=== PATIENT | male | born 1990 | race Caucasian/White ===

== ENCOUNTER 2018-03-30 21:31 | Emergency (ER) | payer SELFPAY ==
[2018-03-30 21:31] VITALS: BMI 26.6
[2018-03-30 22:00] VITALS: BP 130/96; PULSE 82; RESP 20; TEMP 97.6; O2SAT 96
--- NOTE | 2018-03-30 23:01 | C.PDOC ---
History Of Present Illness 27 year old male presents to the emergency department for evaluation of a headache which has been on and off for the past few months. Patient reports that his headache is frontal, and is associated with nausea, light sensitivity, and intermittent episodes of vomiting. At the present time, patient reports that his headache is minimal, and he states " I just want to check my head". Pt denies fever, chills, worse headache of life, visual changes, focal deficits , sore throat, neck pain, chest pain, shortness of breath, dypsnea, palpitation , diaphoresis, abd. pain, vomiting, diarrhea, back pain, UTI sx. Ambulate to ED for evaluation, not in any apparent distress. Time Seen by Provider: 03/30/18 22:02 Chief Complaint (Nursing): Headache History Per: Patient History/Exam Limitations: no limitations Onset/Duration Of Symptoms: Other (1 year) Current Symptoms Are (Timing): Still Present Quality: Aching Associated Symptoms: Photophobia, Nausea, Vomiting. denies: Blurred Vision Past Medical History Reviewed: Historical Data, Nursing Documentation, Vital Signs Vital Signs: Last Vital Signs Temp 97.6 F 03/30/18 21:54 Pulse 82 03/30/18 21:54 Resp 20 03/30/18 21:54 BP 130/96 H 03/30/18 21:54 Pulse Ox 96 03/30/18 23:23 - Medical History PMH: No Chronic Diseases Surgical History: No Surg Hx Family History: States: No Known Family Hx - Social History Hx Alcohol Use: Yes Hx Substance Use: No - Immunization History Hx Tetanus Toxoid Vaccination: No Hx Influenza Vaccination: No Hx Pneumococcal Vaccination: No Review Of Systems Except As Marked, All Systems Reviewed And Found Negative. Constitutional: Negative for: Fever Eyes: Positive for: Other (photophobia) Cardiovascular: Positive for: Chest Pain Respiratory: Negative for: Shortness of Breath Gastrointestinal: Positive for: Nausea, Vomiting Musculoskeletal: Negative for: Neck Pain Neurological: Positive for: Headache Physical Exam - Physical Exam Appears: Well, Non-toxic, No Acute Distress Skin: Warm, Dry, No Rash, No Ecchymosis Head: Atraumatic, Normacephalic Eye(s): bilateral: PERRL, EOMI Ear(s): Bilateral: Normal Nose: No Flaring, No Discharge Oral Mucosa: Moist Throat: No Erythema, No Drooling Neck: Trachea Midline, No Midline Cervical Tenderness, No Paracervical Tenderness, No Step Off Deformity, Supple Chest: Symmetrical, No Tenderness Cardiovascular: Rhythm Regular, No Murmur, No JVD, Other ((-) carotid bruits B/L ) Respiratory: No Decreased Breath Sounds, No Accessory Muscle Use, No Rales, No Rhonchi, No Stridor, No Wheezing Gastrointestinal/Abdominal: Soft, No Tenderness, No Distention, No Guarding Extremity: Normal ROM (all extremities), No Tenderness, No Pedal Edema, No Deformity Neurological/Psych: Oriented x3, Normal Speech, Normal Cognition, Normal Motor, Normal Sensation, Normal Reflexes ED Course And Treatment O2 Sat by Pulse Oximetry: 96 (RA) Pulse Ox Interpretation: Normal - CT Scan/US CT head w/o contrast Other Rad Studies (CT/US): Radiology Report Reviewed CT/US Interpretation: IMPRESSION: 1. No definite acute intracranial abnormality. 2. Sinus disease. 3. Incidental/non-acute findings are described above. Thank you for allowing us to participate in the care of your patient. Dictated and Authenticated by: Wilfrido Willson MD. 03/31/2018 12:06 AM Eastern Time ([place] & [place]) Progress Note: On re-evaluation, pot is afebrile, hemodynamicaly stable. NOn- toxic. Ambulatory in ED with stable gait. PulsEOx 96% RA. ENT: no acute findings. Neck: Supple, (-) meningeal sign. Lungs: CTA B/L, BS equal B/L. CVS : (+)S1S2, reg. Abd: benign, (-) guarding, (-) rebound, (-) localized tenderness. back: (-) CVA tenderness. Neuorlogicaly intact. Head CT results review and c/w sinusitis ethmoidal. Pt advised and ref. to f/u with PMD, neuorlogist in 2-3 days for re-evaluation. return to ED if anyw orsening or new changes. Disposition Counseled Patient/Family Regarding: Studies Performed, Diagnosis, Need For Followup, Rx Given - Disposition Referrals: [facility] [Outside] Augustus Gregory MD [Staff Provider] - Disposition: HOME/ ROUTINE Disposition Time: 00:21 Condition: STABLE Additional Instructions: Take medication as prescribed Avoid cold air Follow up with PMD, Neurologist in 2-3 days for re-evaluation. return if any worsening or new changes. Prescriptions: Amoxicillin/Clavulanate [Augmentin 875 MG-125 MG] 1 tab PO BID #14 tab Prednisone [Deltasone] 40 mg PO DAILY #6 tablet Instructions: Sinus Headache (DC) Forms: [email or web address] (Samoan) - Clinical Impression Clinical Impression: Sinusitis, Headache - PA / EXECUTIVE VICE PRESIDENT / Resident Statement MD/DO has reviewed & agrees with the documentation as recorded. - Scribe Statement The provider has reviewed the documentation as recorded by the Scribe (Floyd Hoffmann) All medical record entries made by the Scribe were at my direction and personally dictated by me. I have reviewed the chart and agree that the record accurately reflects my personal performance of the history, physical exam, medical decision making, and the department course for this patient. I have also personally directed, reviewed, and agree with the discharge instructions and disposition.
[2018-03-31] MEDS ORDERED: Amoxicillin-Clav 875-125 mg Tab PO STA (00:21)
[2018-03-31] MEDS ORDERED: Amoxicillin-Clav 875-125 mg Tab PO ONE (00:29)
--- NOTE | 2018-03-31 14:40 | CT ---
Date of service: 03/30/2018 PROCEDURE: CT HEAD WITHOUT CONTRAST. HISTORY: headache COMPARISON: None available. TECHNIQUE: Axial computed tomography images were obtained through the head/brain without intravenous contrast. Radiation dose: Total exam DLP = 1218.56 mGy-cm. This CT exam was performed using one or more of the following dose reduction techniques: Automated exposure control, adjustment of the mA and/or kV according to patient size, and/or use of iterative reconstruction technique. FINDINGS: HEMORRHAGE: No intracranial hemorrhage. BRAIN: No mass effect or edema. No atrophy or chronic microvascular ischemic changes. VENTRICLES: Unremarkable. No hydrocephalus. CALVARIUM: Unremarkable. PARANASAL SINUSES: Mucosal thickening noted in the ethmoid sinuses. Mucosal retention cyst at the right sphenoid sinus measures 1.4 centimeter. MASTOID AIR CELLS: Unremarkable as visualized. No inflammatory changes. OTHER FINDINGS: None. IMPRESSION: No evidence of acute intracranial hemorrhage intracranial collection mass effect or midline shift. Preliminary report was submitted by the virtual Radiology. .
== END 2018-03-31 00:29 | disposition home or self-care (01) ==
LOC: C.ER 21:31
DX: J32.9 Chronic sinusitis, unspecified (principal); R51 Headache